=== PATIENT | male | born 1995 | race Caucasian/White ===

== ENCOUNTER 2018-06-26 00:25 | Emergency (ER) | payer MEDICAID ==
[~2018-06-26] VITALS: Ht 604 cm; Wt 70.5 kg
[~2018-06-26 00:25] MED LIST: PHE12.5T PO
[2018-06-26 02:10] LABS: URINE AMPHETAMINE SCREEN NEGATIVE (Neg); URINE BARBITUATE SCREEN NEGATIVE (Neg); URINE BENZODIAZEPINES SCREEN NEGATIVE (Neg); URINE CANNABINOID SCREEN POSITIVE (Neg); URINE COCAINE SCREEN NEGATIVE (Neg); URINE METHADONE SCREEN NEGATIVE (Neg); URINE OPIATE SCREEN NEGATIVE (Neg); URINE PHENCYCLIDINE SCREEN NEGATIVE (Neg)
[2018-06-26 02:25] LABS: CLARITY,URINE CLEAR (Clear); COLOR,URINE STRAW (Yellow); GLUCOSE, URINE NEGATIVE (Neg); KETONES,URINE NEGATIVE (Neg); LEUKOCYTE ESTERASE ,URINE NEGATIVE (Neg); NITRITES, URINE NEGATIVE (Neg); OCCULT BLOOD,URINE NEGATIVE (Neg); PROTEIN,URINE NEGATIVE (Neg); UA COLLECTION TYPE CLN CATCH MIDSTREAM; UROBILINOGEN,URINE 0.2 E.U/dL (0.2-1.0)
[2018-06-26 02:33] LABS: BASOPHILS % (AUTO) 0.1 % (0-1); EOSINOPHILS # (AUTO) 0.3 X10'3 (0-0.9); EOSINOPHILS % (AUTO) 2.4 % (0-6); HEMATOCRIT 45.1 % (42.0-52.0); HEMOGLOBIN 15.5 g/dl (14.0-17.9); LYMPHOCYTES # (AUTO) 3.8 X10'3 (1.1-4.8); LYMPHOCYTES % (AUTO) 32.7 % (21-51); MEAN CORPUSCULAR HEMOGLOBIN 31.4 PG (27.0-31.0); MEAN CORPUSCULAR HGB CONC 34.3 % (33.0-36.5); MEAN CORPUSCULAR VOLUME 91.4 FL (78-98); MEAN PLATELET VOLUME 7.6 FL (7.4-10.4); MONOCYTES # (AUTO) 0.7 X10'3 (0-0.9); MONOCYTES % (AUTO) 5.9 % (2-12); NEUTROPHILS # (AUTO) 6.8 X10'3 (1.8-7.7); NEUTROPHILS % (AUTO) 58.9 % (42-75); PLATELET COUNT 316 X10'3 (140-440); RED BLOOD COUNT 4.94 X10'6 (4.70-6.10); RED CELL DISTRIBUTION WIDTH 12.6 % (11.5-14.5); WHITE BLOOD COUNT 11.5 X10'3 (4.5-11.0)
[2018-06-26 02:49] LABS: ALANINE AMINOTRANSFERASE 16 U/L (12-78); ALBUMIN 4.5 G/DL (3.4-5.0); ALBUMIN/GLOBULIN RATIO 1.2 (1.1-1.5); ALKALINE PHOSPHATASE 95 IU/L (46-116); ANION GAP 10 (8-16); ASPARTATE AMINO TRANSFERASE 15 U/L (10-37); BILIRUBIN,TOTAL 0.2 MG/DL (0.1-1.0); BLOOD UREA NITROGEN 10 MG/DL (7-18); BUN/CREATININE RATIO 11.1 (5.4-32.0); CALCIUM 8.8 MG/DL (8.5-10.1); CHLORIDE 102 MMOL/L (99-107); GLUCOSE 89 MG/DL (70-104); POTASSIUM 3.9 MMOL/L (3.5-5.1); SODIUM 138 MMOL/L (135-145); TOTAL CARBON DIOXIDE 25.6 MMOL/L (24-32); TOTAL PROTEIN 8.3 G/DL (6.4-8.2); eGFR > 90 ML/MIN
[2018-06-26 02:58] LABS: ETHANOL 0.171 GM/DL (0.0-0.010)
[2018-06-26] MEDS ORDERED: folic acid 1mg tablet PO ONE (09:50)
[2018-06-26] MEDS ORDERED: thiamine 100mg tablet PO ONE (09:50)
[2018-06-26] MEDS ORDERED: LORazepam 1 MG tablet PO PRN (11:20)
[2018-06-26] MEDS ORDERED: haloperidol 5mg tablet PO PRN (11:20)
[2018-06-26] MEDS ORDERED: mag hydrox/Alum hydrox/simeth 30ml oral suspension PO PRN (11:20)
[2018-06-26] MEDS: multivitamins, therapeutics tablet PO SCH (11:47)
[2018-06-27] MEDS: multivitamins, therapeutics tablet PO SCH (07:18)
[2018-06-27] MEDS ORDERED: SPIR100T5 PO (07:22)
[2018-06-27] MEDS ORDERED: EST1T SL (07:22)
[2018-06-27] MEDS ORDERED: acetaminophen 325mg tablet PO ONE ×2 (07:45→14:30)
[2018-06-27] MEDS ORDERED: spironolactone 25 MG tablet PO SCH (08:00)
[2018-06-27] MEDS ORDERED: spironolactone 50 MG tablet PO ONE (08:05)
[2018-06-27] MEDS ORDERED: acetaminophen 325mg tablet PO PRN (19:25)
[2018-06-27] MEDS: spironolactone 50 MG tablet PO SCH (20:02)
[2018-06-28 05:08] VITALS: BP 123/72
[2018-06-28] MEDS: multivitamins, therapeutics tablet PO SCH (07:43)
[2018-06-28] MEDS: spironolactone 50 MG tablet PO SCH (07:43)
== END 2018-06-28 15:08 ==
LOC: EEVIPCON 00:26 → ER 00:26
DX: R45.851 Suicidal ideations (principal); F32.9 Major depressive disorder, single episode, unspecified; F12.90 Cannabis use, unspecified, uncomplicated
CPT/HCPCS: 36415; 80053; 80305; 80320; 81003; 84443; 85025; 99285

== ENCOUNTER 2019-01-29 13:57 | Emergency (ER) | payer MEDICAID ==
[~2019-01-29] VITALS: Ht 177.8 cm; Wt 77.3 kg
[~2019-01-29 13:57] MED LIST changes: +EST1T SL; -PHE12.5T PO; +SPIR100T5 PO
--- NOTE | 2019-01-29 15:12 | NUR ---
refused lab work
--- NOTE | 2019-01-29 15:14 | NUR ---
PT REFUSED LAB DRAW. STATED TO LINKER UP THAT HE WAS SEEN IN THE ER WHEN HE WAS 16 AND IT IS THE SAME THING, HE WAS GIVEN AN INHALER BEFORE AND DIDNT NEED BLOOD WORK THEN. LINKER UP TRIED TO EXPLAIN THAT IT MAY NOT BE THE SAME THING, PT STILL REFUSED LAB WORK DRAWN
[2019-01-29] MEDS ORDERED: EST1T PO (16:24)
[2019-01-29] MEDS ORDERED: albuterol 2.5 MG/3 ML nebule NEB ONE (16:35)
[2019-01-29 16:38] VITALS: BP 150/74
[2019-01-29] MEDS ORDERED: ALBU8.5H8 IH (17:26)
== END 2019-01-29 17:37 | disposition left against medical advice (07) ==
LOC: ER 13:58
DX: R06.02 Shortness of breath (principal); F12.90 Cannabis use, unspecified, uncomplicated; Z79.890 Hormone replacement therapy; Z87.01 Personal history of pneumonia (recurrent); Z79.899 Other long term (current) drug therapy
CPT/HCPCS: 71045; 93005; 94640; 94760; 99283; 99284

== ENCOUNTER 2020-09-08 23:53 | Emergency (ER) | payer MEDICAID ==
[~2020-09-08] VITALS: Ht 177.8 cm; Wt 68.0 kg
[~2020-09-08 23:53] MED LIST changes: +ALBU8.5H8 IH; +EST1T PO
[2020-09-09 00:01] VITALS: BP 120/83
[2020-09-09] MEDS ORDERED: ibuprofen tablet 400 MG TABLET PO ONE (00:50)
[2020-09-09] MEDS ORDERED: acetaminophen 325mg tablet PO ONE (00:50)
== END 2020-09-09 01:10 | disposition home or self-care (01) ==
LOC: ER 23:54
DX: R51.9 Headache, unspecified (principal); R50.9 Fever, unspecified; R42 Dizziness and giddiness; F12.10 Cannabis abuse, uncomplicated; Z20.828 Contact with and (suspected) exposure to other viral communicable diseases
CPT/HCPCS: 36415; 87635; 99283

== ENCOUNTER 2020-09-28 13:08 | Emergency (ER) | payer MEDICAID ==
[~2020-09-28] VITALS: Ht 177.8 cm; Wt 73.7 kg
[2020-09-28 13:27] VITALS: BP 124/80
== END 2020-09-28 14:45 | disposition home or self-care (01) ==
LOC: ER 13:08
DX: J32.9 Chronic sinusitis, unspecified (principal); Z79.899 Other long term (current) drug therapy
CPT/HCPCS: 71045; 99284